=== PATIENT | male | born 1980 | race African-American/Black ===

== ENCOUNTER 2023-01-12 18:01 | Emergency (ER) | payer OTHER ==
[2023-01-12 18:24] VITALS: BP 125/88; PULSE 77; RESP 18; TEMP 98; BMI 29.8
== END 2023-01-12 19:53 | disposition home or self-care (01) ==
LOC: JER 18:01 → JERFT 18:01
DX: L03.113 Cellulitis of right upper limb (principal)
CPT/HCPCS: 99281-25